=== PATIENT | female | born 1975 | race Two or more races ===

== ENCOUNTER 2020-12-05 21:15 | Emergency (ER) | payer OTHER ==
[2020-12-05 21:23] VITALS: BP 148/84; PULSE 88; TEMP 98; BMI 26.9
[2020-12-05] MEDS ORDERED: SILVER SULFADIAZINE 1% TOP CREAM 50 GM JAR TP ONE ×2 (21:51→22:04)
== END 2020-12-05 22:36 | disposition home or self-care (01) ==
LOC: JERFT 21:15
DX: T22.211A Burn of second degree of right forearm, initial encounter (principal)
CPT/HCPCS: 99283-25

== ENCOUNTER 2020-12-09 17:01 | Emergency (ER) | payer OTHER ==
[2020-12-09 17:27] VITALS: TEMP 98.5; BMI 20.7
[2020-12-09 19:28] LABS: BASO % 0.4 % (0-2.0); EOS % 3.1 % (0-4.5); HEMATOCRIT 35.2 % (32.4-45.2); HEMOGLOBIN 10.9 GM/dL (10.7-15.3); LYMPH % 24.3 % (8-40); MCH 20.8 pg (25.7-33.7); MCHC 31.1 g/dl (32.0-36.0); MONO % 7.9 % (3.8-10.2); NEUT % 64.3 % (42.8-82.8); PLATELET COUNT 310 10^3/uL (134-434); RBC 5.25 M/mm3 (3.60-5.2); RDW 23.7 % (11.6-15.6); WHITE BLOOD COUNT 8.4 K/mm3 (4.0-10.0)
[2020-12-09] MEDS ORDERED: IBUPROFEN 600 MG TABLET (FP) PO ONE ×2 (19:35→20:21)
[2020-12-09 19:38] LABS: INR 1.02 (0.83-1.09); PROTHROMBIN TIME (PATIENT) 12.5 SEC (9.7-13.0)
[2020-12-09 19:40] LABS: ACTIVATED PTT 30.2 SECONDS (25.2-36.5)
[2020-12-09 19:58] LABS: ALBUMIN 3.8 g/dl (3.4-5.0)
[2020-12-09 20:01] LABS: CREATININE 0.6 mg/dL (0.55-1.3)
[2020-12-09 20:02] LABS: BILIRUBIN,TOTAL 0.4 mg/dL (0.2-1)
[2020-12-09 20:03] LABS: TOT PROT 7.4 g/dl (6.4-8.2)
[2020-12-09 20:41] LABS: ANISOCYTOSIS 1+; MACROCYTOSIS 0; PLATELET ESTIMATE NORMAL; TARGET CELLS 1+
[2020-12-09 21:07] VITALS: BP 116/70; PULSE 71
[2020-12-09 21:15] LABS: PH,URINE 6.5 (5.0-8.0); URINE APPEARANCE CLEAR; URINE BILIRUBIN NEGATIVE (NEGATIVE); URINE COLOR YELLOW; URINE GLUCOSE (UA) NEGATIVE (NEGATIVE); URINE KETONE NEGATIVE (NEGATIVE); URINE LEUK ESTERASE NEGATIVE (NEGATIVE); URINE NITRITE NEGATIVE (NEGATIVE); URINE PROTEIN NEGATIVE (NEGATIVE); URINE UROBILINOGEN 0.2 mg/dL (0.2-1.0)
== END 2020-12-09 22:33 | disposition home or self-care (01) ==
LOC: JER 17:01
DX: R19.09 Other intra-abdominal and pelvic swelling, mass and lump (principal)
CPT/HCPCS: 36415; 80053; 81003; 84702; 85025; 85610; 85730; 86850; 86900; 86901; 87491; 87591; 99284-25

== ENCOUNTER 2021-01-04 11:05 | Emergency (ER) | payer OTHER ==
[2021-01-04 11:23] VITALS: TEMP 97.2; BMI 26.9
[2021-01-04] MEDS ORDERED: ACETAMINOPHEN 1000 MG/100 ML VIAL (NON FORMULARY) IVPB ONE (12:15)
[2021-01-04] MEDS ORDERED: SODIUM CHLORIDE 1,000 ML IV STA (12:15)
[2021-01-04] MEDS ORDERED: ONDANSETRON 4 MG/2 ML VIAL IVPUSH ONE (12:15)
[2021-01-04] MEDS ORDERED: ONDANSETRON 4 MG/2 ML VIAL ONE (12:23)
[2021-01-04] MEDS ORDERED: ACETAMINOPHEN INJECTION 100 ML IVPB ONE (12:23)
[2021-01-04 12:32] LABS: EPI CELLS >36 /uL (0-25.1); HYALINE CASTS 1 /uL (0-3.1); URINE APPEARANCE CLEAR; URINE BACTERIA 922 /uL (0-1359); URINE BILIRUBIN NEGATIVE (NEGATIVE); URINE COLOR YELLOW; URINE GLUCOSE (UA) NEGATIVE (NEGATIVE); URINE KETONE NEGATIVE (NEGATIVE); URINE LEUK ESTERASE TRACE (NEGATIVE); URINE NITRITE NEGATIVE (NEGATIVE); URINE PROTEIN NEGATIVE (NEGATIVE); URINE RBC 2 /uL (0-23.9); URINE WBC 55 /uL (0-25.8)
[2021-01-04 12:33] LABS: HCG,QUALITATIVE URINE Negative
[2021-01-04 12:59] LABS: HEMATOCRIT 33.6 % (32.4-45.2); HEMOGLOBIN 10.2 GM/dL (10.7-15.3); MCH 20.6 pg (25.7-33.7); MCHC 30.5 g/dl (32.0-36.0); MEAN CELL VOLUME 67.6 fl (80-96); MEAN PLT VOLUME 9.4 fl (7.5-11.1); PLATELET COUNT 310 10^3/uL (134-434); RBC 4.96 M/mm3 (3.60-5.2); RDW 20.8 % (11.6-15.6)
[2021-01-04 13:07] LABS: WHITE BLOOD COUNT 10.6 K/mm3 (4.0-10.0)
[2021-01-04 13:21] LABS: CALCIUM 9.1 mg/dL (8.5-10.1)
[2021-01-04 13:22] LABS: ALBUMIN 3.8 g/dl (3.4-5.0); BLOOD UREA NITROGEN 10.9 mg/dL (7-18)
[2021-01-04 13:25] LABS: CREATININE 0.7 mg/dL (0.55-1.3)
[2021-01-04 13:26] LABS: BILIRUBIN,TOTAL 0.4 mg/dL (0.2-1); TOT PROT 7.6 g/dl (6.4-8.2)
[2021-01-04 14:02] LABS: ANISOCYTOSIS 1+; MACROCYTOSIS 0; PLATELET ESTIMATE NORMAL; TARGET CELLS 1+
[2021-01-04] MEDS ORDERED: KETOROLAC TROMETHAMINE 30 MG/1 ML VIAL IVPUSH ONE (17:05)
[2021-01-04] MEDS ORDERED: KETOROLAC TROMETHAMINE 30 MG/1 ML VIAL ONE (17:43)
[2021-01-04 17:52] VITALS: BP 130/65; PULSE 78
== END 2021-01-04 17:52 | disposition home or self-care (01) ==
LOC: JER 11:05
PROC: 3E0333Z Introduction of Anti-inflammatory into Peripheral Vein, Percutaneous Approach (ICD-10-PCS; principal; 2021-01-04)
PROC: 3E0333Z Introduction of Anti-inflammatory into Peripheral Vein, Percutaneous Approach (ICD-10-PCS; 2021-01-04)
PROC: 3E033GC Introduction of Other Therapeutic Substance into Peripheral Vein, Percutaneous Approach (ICD-10-PCS; 2021-01-04)
PROC: 3E0337Z Introduction of Electrolytic and Water Balance Substance into Peripheral Vein, Percutaneous Approach (ICD-10-PCS; 2021-01-04)
DX: R10.31 Right lower quadrant pain (principal); N83.291 Other ovarian cyst, right side; N30.00 Acute cystitis without hematuria
CPT/HCPCS: 36415; 74177-TC; 76830-TC; 80053; 81003; 84703; 85025; 87086; 99285-25; J0131; Q9967

== ENCOUNTER 2022-02-23 18:36 | Emergency (ER) | payer OTHER ==
[2022-02-23 18:54] VITALS: BP 132/78; PULSE 78; RESP 20; TEMP 97.5; BMI 28.8
[2022-02-23] MEDS ORDERED: ONDANSETRON 4 MG/2 ML VIAL IVPUSH ONE (21:06)
[2022-02-23] MEDS ORDERED: ACETAMINOPHEN 1000 MG/100 ML BAG IVPB ONE (21:06)
[2022-02-23] MEDS ORDERED: SODIUM CHLORIDE 1,000 ML IV STA (21:06)
[2022-02-23] MEDS ORDERED: ACETAMINOPHEN INJECTION 100 ML IVPB ONE (21:26)
[2022-02-23] MEDS ORDERED: FAMOTIDINE 20 MG/50 ML IVPB 20 MG/50 ML MG IVPB ONE (21:26)
[2022-02-23] MEDS ORDERED: ONDANSETRON 4 MG/2 ML VIAL ONE (21:36)
[2022-02-23 21:58] LABS: EPI CELLS 7 /uL (0-25.1); HYALINE CASTS 12 /uL (0-3.1); URINE APPEARANCE CLOUDY; URINE BACTERIA >9,000 /uL (0-1359); URINE BILIRUBIN NEGATIVE (NEGATIVE); URINE COLOR YELLOW; URINE GLUCOSE (UA) NEGATIVE (NEGATIVE); URINE KETONE 1+ (NEGATIVE); URINE LEUK ESTERASE 2+ (NEGATIVE); URINE NITRITE POSITIVE (NEGATIVE); URINE PROTEIN NEGATIVE (NEGATIVE); URINE RBC 20 /uL (0-23.9); URINE WBC 575 /uL (0-25.8)
[2022-02-23 22:13] LABS: ALBUMIN 3.7 g/dl (3.4-5.0); BASO % 0.5 % (0-2.0); BLOOD UREA NITROGEN 12.5 mg/dL (7-18); EOS % 1.3 % (0-4.5); HEMATOCRIT 42.2 % (32.4-45.2); LYMPH % 22.3 % (8-40); MCH 27.1 pg (25.7-33.7); MCHC 33.3 g/dl (32.0-36.0); MEAN CELL VOLUME 81.5 fl (80-96); MEAN PLT VOLUME 8.9 fl (7.5-11.1); MONO % 6.4 % (3.8-10.2); NEUT % 69.5 % (42.8-82.8); PLATELET COUNT 236 10^3/uL (134-434); RBC 5.17 M/mm3 (3.60-5.2); RDW 14.7 % (11.6-15.6); WHITE BLOOD COUNT 9.3 K/mm3 (4.0-10.0)
[2022-02-23 22:15] LABS: CREATININE 0.6 mg/dL (0.55-1.3)
[2022-02-23 22:17] LABS: BILIRUBIN,TOTAL 0.5 mg/dL (0.2-1); TOT PROT 7.3 g/dl (6.4-8.2)
[2022-02-24] MEDS ORDERED: CEPHALEXIN MONOHYDRATE 500 MG CAPSULE (UD) PO ONE (00:13)
[2022-02-24] MEDS ORDERED: CEPHALEXIN MONOHYDRATE 500 MG CAPSULE (UD) ONE (00:21)
== END 2022-02-24 00:29 | disposition home or self-care (01) ==
LOC: JER 18:36
PROC: 3E033NZ Introduction of Analgesics, Hypnotics, Sedatives into Peripheral Vein, Percutaneous Approach (ICD-10-PCS; principal; 2022-02-23)
PROC: 3E033GC Introduction of Other Therapeutic Substance into Peripheral Vein, Percutaneous Approach (ICD-10-PCS; 2022-02-23)
PROC: 3E0337Z Introduction of Electrolytic and Water Balance Substance into Peripheral Vein, Percutaneous Approach (ICD-10-PCS; 2022-02-23)
DX: N39.0 Urinary tract infection, site not specified (principal); K80.20 Calculus of gallbladder without cholecystitis without obstruction
CPT/HCPCS: 36415; 76705-TC; 80053; 81003; 83690; 84703; 85025; 87086; 87186; 93005; 93010; 99284-25

== ENCOUNTER 2022-05-04 04:04 | Day surgery (SDC) | payer OTHER ==
[2022-05-02 16:05] VITALS: BMI 27.7
[~2022-05-04 04:04] MED LIST: BUPIVACAINE HCL/PF 0.5% (5MG/ML) 10 ML VIAL IJ ONE
[2022-05-04] MEDS ORDERED: PROPOFOL 20 ML ONE ×2 (10:23→11:14)
[2022-05-04] MEDS ORDERED: LIDOCAINE HCL/PF 2% SDV 5ML VIAL ONE (10:23)
[2022-05-04] MEDS ORDERED: ROCURONIUM BROMIDE 50 MG/5 ML SYRINGE ONE (11:11)
[2022-05-04] MEDS ORDERED: DEXAMETHASONE SOD PHOSPHATE 4 MG/1 ML VIAL ONE (11:13)
[2022-05-04] MEDS ORDERED: ONDANSETRON 4 MG/2 ML VIAL ONE (11:13)
[2022-05-04] MEDS ORDERED: ceFAZolin SODIUM 1 GM VIAL ONE (11:13)
[2022-05-04] MEDS ORDERED: MIDAZOLAM HCL 2 MG/2 ML SINGLE DOSE VIAL ONE (11:14)
[2022-05-04] MEDS ORDERED: ceFAZolin SODIUM 1 GM VIAL IVPB ONE (11:51)
[2022-05-04] MEDS ORDERED: GLYCOPYRROLATE 0.2 MG/1 ML VIAL ONE ×2 (12:30→12:50)
[2022-05-04] MEDS ORDERED: NEOSTIGMINE METHYLSULFATE 0.5 MG/ML - 10 ML MDV ONE (12:30)
[2022-05-04] MEDS ORDERED: ACETAMINOPHEN INJECTION 100 ML IVPB ONE (12:36)
[2022-05-04] MEDS ORDERED: KETOROLAC TROMETHAMINE 30 MG/1 ML VIAL ONE (12:44)
[2022-05-04] MEDS ORDERED: BUPIVACAINE HCL/PF 0.5% (5MG/ML) 10 ML VIAL IJ ONE ×2 (12:49)
[2022-05-04] MEDS ORDERED: oxyCODONE HCL 5 MG TABLET PO PRN (13:08)
[2022-05-04] MEDS ORDERED: ONDANSETRON 4 MG/2 ML VIAL IVPUSH PRN (13:08)
[2022-05-04] MEDS ORDERED: LACTATED RINGERS SOLUTION 1,000 ML IV SCH (13:15)
[2022-05-04 15:09] VITALS: RESP 16
[2022-05-04] MEDS ORDERED: oxyCODONE HCL 5 MG TABLET ONE (15:11)
[2022-05-04] MEDS ORDERED: oxyCODONE HCL 5 MG TABLET PO ONE (15:15)
[2022-05-04 16:00] VITALS: BP 133/86; PULSE 86; TEMP 97.1
== END 2022-05-04 17:10 | disposition home or self-care (01) ==
LOC: JASU-SURG 04:04
PROVIDERS: ATTEND Surgery
PROC: 0FT44ZZ Resection of Gallbladder, Percutaneous Endoscopic Approach (ICD-10-PCS; principal; 2022-05-04 14:30)
DX: K80.10 Calculus of gallbladder with chronic cholecystitis without obstruction (principal)
CPT/HCPCS: 81025; 82962; 88304-TC; 94760

== ENCOUNTER 2022-10-05 04:36 | Day surgery (SDC) | payer OTHER ==
[2022-10-04 14:26] VITALS: BMI 28.7
[2022-10-05 10:56] VITALS: TEMP 97.3
[2022-10-05 11:48] VITALS: BP 116/76; PULSE 71; RESP 13
== END 2022-10-05 11:43 | disposition home or self-care (01) ==
LOC: JASU-ENDO 04:36
PROVIDERS: ATTEND Internal Medicine Gastroenterology
PROC: 0DBL8ZX Excision of Transverse Colon, Via Natural or Artificial Opening Endoscopic, Diagnostic (ICD-10-PCS; 2022-10-05)
PROC: 0DB68ZX Excision of Stomach, Via Natural or Artificial Opening Endoscopic, Diagnostic (ICD-10-PCS; 2022-10-05)
PROC: 0DB78ZX Excision of Stomach, Pylorus, Via Natural or Artificial Opening Endoscopic, Diagnostic (ICD-10-PCS; 2022-10-05)
PROC: 0DBM8ZX Excision of Descending Colon, Via Natural or Artificial Opening Endoscopic, Diagnostic (ICD-10-PCS; principal; 2022-10-05 11:00)
DX: Z12.11 Encounter for screening for malignant neoplasm of colon (principal); D12.3 Benign neoplasm of transverse colon; D12.4 Benign neoplasm of descending colon; K29.50 Unspecified chronic gastritis without bleeding; K44.9 Diaphragmatic hernia without obstruction or gangrene
CPT/HCPCS: 88305-TC; 88342-TC

== ENCOUNTER 2023-10-06 13:56 | Emergency (ER) | payer OTHER ==
[2023-10-06 14:11] VITALS: BP 129/71; PULSE 80; RESP 18; TEMP 98.3; BMI 26.1
[2023-10-06] MEDS ORDERED: ACETAMINOPHEN INJECTION 100 ML IVPB ONE (15:07)
[2023-10-06] MEDS ORDERED: FAMOTIDINE 20 MG/50 ML IVPB 20 MG/50 ML MG IVPB ONE (15:07)
[2023-10-06 15:09] LABS: BASO % 0.6 % (0-2.0); EOS % 3.2 % (0-4.5); HEMATOCRIT 41.3 % (32.4-45.2); HEMOGLOBIN 13.8 GM/dL (10.7-15.3); LYMPH % 29.4 % (8-40); MCH 27.2 pg (25.7-33.7); MCHC 33.4 g/dl (32.0-36.0); MEAN CELL VOLUME 81.5 fl (80-96); MEAN PLT VOLUME 8.5 fl (7.5-11.1); MONO % 10.1 % (3.8-10.2); NEUT % 56.7 % (42.8-82.8); PLATELET COUNT 241 10^3/uL (134-434); RBC 5.07 M/mm3 (3.60-5.2); RDW 13.7 % (11.6-15.6); WHITE BLOOD COUNT 6.2 K/mm3 (4.0-10.0)
[2023-10-06] MEDS: FAMOTIDINE 20 MG/50 ML IVPB 20 MG/50 ML MG IVPB ONE (15:16)
[2023-10-06] MEDS: ACETAMINOPHEN 1000 MG/100 ML BAG IVPB ONE (15:16)
[2023-10-06] MEDS: LACTATED RINGERS SOLUTION 1000 ML INFUS.BAG IV ONE (15:16)
[2023-10-06 15:19] LABS: INR 1.06 (0.83-1.09); PROTHROMBIN TIME (PATIENT) 12.3 SEC (9.7-13.0)
[2023-10-06 15:22] LABS: ACTIVATED PTT 27.1 SECONDS (25.2-36.5)
[2023-10-06 15:44] LABS: POTASSIUM 4.5 mmol/L (3.5-5.1)
[2023-10-06 15:48] LABS: ALBUMIN 3.6 g/dl (3.4-5.0); BLOOD UREA NITROGEN 11.8 mg/dL (7-18); CALCIUM 9.4 mg/dL (8.5-10.1); MAGNESIUM 1.9 mg/dL (1.8-2.4)
[2023-10-06 15:51] LABS: CREATININE 0.7 mg/dL (0.55-1.3)
[2023-10-06 15:53] LABS: TOT PROT 7.1 g/dl (6.4-8.2)
[2023-10-06 15:56] LABS: PH,URINE 6.5 (5.0-8.0); URINE APPEARANCE CLEAR; URINE BILIRUBIN NEGATIVE (NEGATIVE); URINE COLOR YELLOW; URINE GLUCOSE (UA) 3+ (NEGATIVE); URINE KETONE NEGATIVE (NEGATIVE); URINE LEUK ESTERASE NEGATIVE (NEGATIVE); URINE NITRITE NEGATIVE (NEGATIVE); URINE PROTEIN NEGATIVE (NEGATIVE); URINE UROBILINOGEN 0.2 mg/dL (0.2-1.0)
[2023-10-06 15:57] LABS: BILIRUBIN,TOTAL 0.6 mg/dL (0.2-1)
== END 2023-10-06 17:56 | disposition home or self-care (01) ==
LOC: JER 13:56
PROC: 3E033GC Introduction of Other Therapeutic Substance into Peripheral Vein, Percutaneous Approach (ICD-10-PCS; principal; 2023-10-06)
PROC: 3E033NZ Introduction of Analgesics, Hypnotics, Sedatives into Peripheral Vein, Percutaneous Approach (ICD-10-PCS; 2023-10-06)
DX: R19.7 Diarrhea, unspecified (principal); R10.84 Generalized abdominal pain; R53.1 Weakness; R11.0 Nausea; Z20.822 Contact with and (suspected) exposure to COVID-19
CPT/HCPCS: 0241U-QW; 36415; 71045-TC-FY; 74177-TC; 80053; 81003; 82962; 83690; 83735; 84484; 84703; 85025; 85610; 85730; 87086; 93005; 93010; 99285-25; J0131; Q9967

== ENCOUNTER 2023-11-21 09:53 | Emergency (ER) | payer OTHER ==
[2023-11-21 09:59] VITALS: RESP 18; TEMP 97.3; BMI 27.9
[2023-11-21] MEDS ORDERED: ONDANSETRON 4 MG/2 ML VIAL ONE (13:33)
[2023-11-21] MEDS: SODIUM CHLORIDE 0.9% 500 ML INFUS.BAG IV ONE (14:17)
[2023-11-21] MEDS: ONDANSETRON 4 MG/2 ML VIAL IVPUSH ONE (14:17)
[2023-11-21] MEDS: morphine CARPU-JECT 2 MG/1 ML DISP.SYRIN IVPUSH ONE (14:17)
[2023-11-21 14:26] LABS: BASO % 0.5 % (0-2.0); EOS % 1.7 % (0-4.5); HEMATOCRIT 42.1 % (32.4-45.2); HEMOGLOBIN 14.1 GM/dL (10.7-15.3); MCH 27.4 pg (25.7-33.7); MCHC 33.5 g/dl (32.0-36.0); MEAN CELL VOLUME 81.8 fl (80-96); MEAN PLT VOLUME 9.3 fl (7.5-11.1); MONO % 7.5 % (3.8-10.2); NEUT % 56.3 % (42.8-82.8); PLATELET COUNT 234 10^3/uL (134-434); RBC 5.15 M/mm3 (3.60-5.2); RDW 13.7 % (11.6-15.6); WHITE BLOOD COUNT 5.5 K/mm3 (4.0-10.0)
[2023-11-21 14:31] LABS: INR 0.99 (0.83-1.09); PROTHROMBIN TIME (PATIENT) 11.4 SEC (9.7-13.0)
[2023-11-21 14:55] LABS: POTASSIUM 4.7 mmol/L (3.5-5.1)
[2023-11-21 14:57] LABS: BLOOD UREA NITROGEN 10.2 mg/dL (7-18); CALCIUM 9.6 mg/dL (8.5-10.1)
[2023-11-21 15:01] LABS: BILIRUBIN,TOTAL 0.6 mg/dL (0.2-1); CREATININE 0.6 mg/dL (0.55-1.3)
[2023-11-21] MEDS ORDERED: METHOCARBAMOL 500 MG TABLET ONE (15:22)
[2023-11-21] MEDS ORDERED: KETOROLAC TROMETHAMINE 30 MG/1 ML VIAL ONE (15:22)
[2023-11-21] MEDS: METHOCARBAMOL 750 MG TABLET PO ONE (15:30)
[2023-11-21] MEDS: KETOROLAC TROMETHAMINE 30 MG/1 ML VIAL IVPUSH ONE (15:30)
[2023-11-21 15:39] LABS: PH,URINE 5.5 (5.0-8.0); URINE APPEARANCE CLEAR; URINE BILIRUBIN NEGATIVE (NEGATIVE); URINE COLOR YELLOW; URINE GLUCOSE (UA) 3+ (NEGATIVE); URINE KETONE TRACE (NEGATIVE); URINE LEUK ESTERASE NEGATIVE (NEGATIVE); URINE NITRITE NEGATIVE (NEGATIVE); URINE PROTEIN NEGATIVE (NEGATIVE); URINE UROBILINOGEN 0.2 mg/dL (0.2-1.0)
[2023-11-21 17:50] VITALS: BP 130/76; PULSE 80
== END 2023-11-21 19:11 | disposition home or self-care (01) ==
LOC: JER 09:53
PROC: 3E0333Z Introduction of Anti-inflammatory into Peripheral Vein, Percutaneous Approach (ICD-10-PCS; principal; 2023-11-21)
PROC: 3E033NZ Introduction of Analgesics, Hypnotics, Sedatives into Peripheral Vein, Percutaneous Approach (ICD-10-PCS; 2023-11-21)
PROC: 3E033GC Introduction of Other Therapeutic Substance into Peripheral Vein, Percutaneous Approach (ICD-10-PCS; 2023-11-21)
DX: R51.9 Headache, unspecified (principal); M79.10 Myalgia, unspecified site; R07.81 Pleurodynia; R42 Dizziness and giddiness; R11.0 Nausea; M25.512 Pain in left shoulder; M54.2 Cervicalgia; M79.661 Pain in right lower leg; M79.662 Pain in left lower leg
CPT/HCPCS: 36415; 71046-TC-FY; 80053; 81003; 83690; 84484; 85025; 85379; 85610; 87086; 93005; 93010; 99285-25

== ENCOUNTER 2023-12-05 17:40 | Emergency (ER) | payer OTHER ==
[2023-12-05 17:55] VITALS: BP 124/78; PULSE 88; RESP 18; TEMP 98.8; BMI 26.3
[2023-12-05] MEDS: SODIUM CHLORIDE 0.9% 500 ML INFUS.BAG IV ONE (21:57)
[2023-12-05] MEDS: ONDANSETRON 4 MG/2 ML VIAL IVPUSH ONE (21:57)
[2023-12-05 22:09] LABS: VENOUS BASE EXCESS -6.7 mmol/L (-2-2); VENOUS PCO2 37.1 mmHg (38-52); VENOUS PH 7.319 (7.310-7.410)
[2023-12-05 22:11] LABS: BASO % 0.4 % (0-2.0); EOS % 2.3 % (0-4.5); HEMATOCRIT 43.7 % (32.4-45.2); HEMOGLOBIN 14.7 GM/dL (10.7-15.3); LYMPH % 39.5 % (8-40); MCH 27.3 pg (25.7-33.7); MCHC 33.7 g/dl (32.0-36.0); MONO % 7.3 % (3.8-10.2); NEUT % 50.5 % (42.8-82.8); PLATELET COUNT 248 10^3/uL (134-434); RBC 5.39 M/mm3 (3.60-5.2); RDW 13.9 % (11.6-15.6); WHITE BLOOD COUNT 6.3 K/mm3 (4.0-10.0)
[2023-12-05 22:24] LABS: VENOUS O2 SATURATION 72.6 % (70-80)
[2023-12-05 22:29] LABS: POTASSIUM 4.4 mmol/L (3.5-5.1)
[2023-12-05 22:31] LABS: CALCIUM 9.7 mg/dL (8.5-10.1)
[2023-12-05 22:32] LABS: ALBUMIN 4.2 g/dl (3.4-5.0); BLOOD UREA NITROGEN 14.9 mg/dL (7-18)
[2023-12-05 22:35] LABS: CREATININE 0.8 mg/dL (0.55-1.3)
[2023-12-05 22:36] LABS: BILIRUBIN,TOTAL 0.4 mg/dL (0.2-1); TOT PROT 7.7 g/dl (6.4-8.2)
== END 2023-12-05 23:50 | disposition home or self-care (01) ==
LOC: JER 17:40
PROC: 3E033GC Introduction of Other Therapeutic Substance into Peripheral Vein, Percutaneous Approach (ICD-10-PCS; principal; 2023-12-05)
DX: E11.65 Type 2 diabetes mellitus with hyperglycemia (principal); Z79.84 Long term (current) use of oral hypoglycemic drugs; H53.8 Other visual disturbances; R20.2 Paresthesia of skin; R11.0 Nausea
CPT/HCPCS: 36415; 80053; 82803; 82962; 83690; 84484; 85025; 99284-25